=== PATIENT | male | born 2005 | race African-American/Black ===

== ENCOUNTER 2025-05-21 23:54 | Emergency (ER) | payer SELFPAY ==
[~2025-05-21] VITALS: Ht 188 cm; Wt 100.0 kg
[2025-05-22 00:08] VITALS: O2SAT 99
[2025-05-22] MEDS: KETOROLAC 15MG/ML VIAL IV ONE (00:18)
[2025-05-22] MEDS: SODIUM CHLORIDE 0.9% 1,000 ML IV ONE (00:18)
[2025-05-22] MEDS: TETANUS, DIPHTHERIA, PERTUSSIS VAC/PF 0.5ML (>10YR OLD) IM ONE (00:28)
[2025-05-22] MEDS: LIDOCAINE HCL/EPINEPHRINE 1%-EPI 1:100,000 20ML VIAL INFIL ONE (01:14)
[2025-05-22 02:42] LABS: HEPATITIS C AB NON REACTIVE (Neg) (Negative)
[2025-05-22 03:05] VITALS: BP 124/88; PULSE 72; RESP 16; TEMP 37.7; O2SAT 99
== END 2025-05-22 03:05 | disposition home or self-care (01) ==
LOC: ER 23:54
DX: S51.812A Laceration without foreign body of left forearm, initial encounter (principal); W34.00XA Accidental discharge from unspecified firearms or gun, initial encounter; Y93.89 Activity, other specified; Y92.89 Other specified places as the place of occurrence of the external cause; Y99.8 Other external cause status
CPT/HCPCS: 12004; 99284; 86706; 36415; 86705; 73090; 73110; 90715; 90471; 96361; 96374; J1885; J2004; J7030; Z7610 ×2

== ENCOUNTER 2025-05-30 09:48 | Emergency (ER) | payer SELFPAY ==
[~2025-05-30] VITALS: Ht 188 cm; Wt 100.0 kg
[2025-05-30 09:58] VITALS: O2SAT 99
[2025-05-30] MEDS ORDERED: CEPH250C2 MT (10:22)
[2025-05-30] MEDS ORDERED: BO1 TP (10:22)
[2025-05-30] MEDS: BACITRACIN ZINC OINT UDPKT TOP ONE (10:35)
[2025-05-30 10:38] VITALS: BP 155/73; PULSE 78; RESP 16; TEMP 36.7; O2SAT 99
== END 2025-05-30 10:44 | disposition home or self-care (01) ==
LOC: ER 10:05
DX: S51.812D Laceration without foreign body of left forearm, subsequent encounter (principal); X58.XXXD Exposure to other specified factors, subsequent encounter
CPT/HCPCS: 99282; 99283